=== PATIENT | male | born 1990 | race African-American/Black ===

== ENCOUNTER 2018-12-27 10:37 | Inpatient (IN) | payer SELFPAY ==
[2018-12-27] MEDS ORDERED: Oxymetazoline HCl 0.05% (30 ML BOT) ONE (15:02)
[2018-12-27 15:24] LABS: Hemoglobin 15.2 g/dL (14.0-18.0); Mean Corpuscular HGB CONC 32.9 g/dL (32.0-36.0); Mean Corpuscular Hemoglobin 30.4 pg (27.0-31.0); Mean Corpuscular Volume 92.6 fL (78.0-98.0); Mean Platelet Volume 8.1 fL (7.4-10.4); Platelet Count 219 thou/uL (130-400); RBC Distribution Width 11.2 % (11.5-14.5); Red Blood Cell (RBC) Count 4.98 mill/uL (4.70-6.10); White Blood Cell (WBC) Count 11.7 thou/uL (4.8-10.8)
[2018-12-27 15:46] LABS: Anion Gap 13 mmol/L (10-20); BUN (Urea Nitrogen) 7 mg/dL (8.9-20.6); Calc. Creatinine Clearance 0 mL/min (70-130); Calcium 9.2 mg/dL (7.8-10.44); Carbon Dioxide 25 mmol/L (22-29); Chloride 108 mmol/L (98-107); Estimated GFR-MDRD Greater than 90; Glucose 77 mg/dL (70-105); Sodium 142 mmol/L (136-145)
[2018-12-27] MEDS ORDERED: Morphine 4 MG/ML VIAL ONE (20:05)
[2018-12-27 21:27] VITALS: BMI 22.7
[2018-12-27] MEDS ORDERED: Morphine 4 MG/ML VIAL SLOW IVP PRN (21:30)
[2018-12-27] MEDS ORDERED: Lactated Ringer's 1,000 ML IV SCH (21:30)
[2018-12-27] MEDS ORDERED: Chlorhexidine Gluconate 15 ML UDCUP SSP SCH (21:30)
[2018-12-27] MEDS: HYDROcodone/Acetaminophen 5/325 mg Tablet PO PRN (21:41)
[2018-12-27] MEDS: Ibuprofen 800 MG TAB PO SCH (22:57)
[2018-12-27] MEDS: Clindamycin/D5W 600 MG in Premix Bag 1 BAG IVPB SCH (22:58)
[2018-12-28] MEDS: Clindamycin/D5W 600 MG in Premix Bag 1 BAG IVPB SCH ×3 (05:06→18:13)
[2018-12-28] MEDS: Ibuprofen 800 MG TAB PO SCH ×3 (05:09→18:13)
[2018-12-28] MEDS: HYDROcodone/Acetaminophen 5/325 mg Tablet PO PRN ×2 (06:07→16:36)
[2018-12-28] MEDS: Chlorhexidine Gluconate 15 ML UDCUP SSP SCH ×2 (08:43→20:02)
[2018-12-29] MEDS: D5 1/2 NS w/20 mEq KCL 1,000 ML IV SCH ×2 (00:04→10:51)
[2018-12-29] MEDS: Clindamycin/D5W 600 MG in Premix Bag 1 BAG IVPB SCH ×3 (00:04→11:37)
[2018-12-29] MEDS: Ibuprofen 800 MG TAB PO SCH ×3 (00:05→11:20)
[2018-12-29] MEDS ORDERED: Fentanyl 250 MCG/5 ML VIAL ONE (06:34)
[2018-12-29] MEDS ORDERED: Midazolam HCl 2 mg/2 ml Vial ONE (06:54)
[2018-12-29] MEDS ORDERED: Famotidine/PF 20 mg/2ml Vial ONE (06:54)
[2018-12-29] MEDS ORDERED: HYDROmorphone 2 MG/ML VIAL ONE (07:13)
[2018-12-29] MEDS ORDERED: Hydrocortisone 1% Cream 30 GM TUBE ONE (07:21)
[2018-12-29] MEDS ORDERED: Bupivacaine/Epinephrine 0.25% 30 ML VIAL ONE (07:21)
[2018-12-29] MEDS ORDERED: Chlorhexidine Gluconate 15 ML UDCUP SSP ONE (07:21)
[2018-12-29] MEDS ORDERED: Lidocaine 1% w/Epinephrine 1:100K 20 ML VIAL ONE (07:21)
[2018-12-29] MEDS ORDERED: Lidocaine 2% Jelly 5 ML TUBE ONE (07:43)
[2018-12-29] MEDS ORDERED: Oxymetazoline HCl 0.05% ( 15 ML ) ONE (07:49)
[2018-12-29] MEDS ORDERED: SUGAMMADEX SODIUM 500 MG/5 ML VIAL ONE (09:56)
[2018-12-29] MEDS ORDERED: HYDROmorphone 2 MG/ML VIAL SLOW IVP PRN (10:27)
[2018-12-29] MEDS ORDERED: Promethazine HCl 25 MG/ML VIAL SLOW IVP PRN (10:27)
[2018-12-29] MEDS ORDERED: Promethazine HCl 25 MG/ML VIAL IM PRN (10:27)
[2018-12-29] MEDS ORDERED: Meperidine HCl/PF 25 MG/ML VIAL SLOW IVP PRN (10:27)
[2018-12-29] MEDS: Chlorhexidine Gluconate 15 ML UDCUP SSP SCH (10:51)
--- NOTE | 2018-12-29 13:22 | HP ---
HISTORY OF PRESENT ILLNESS: This is a 28-year-old male, who was transferred from [facility] to [facility] in [place] for a higher level of care. The patient reports falling at home, but will not provide details of the events surrounding fall. Negative loss of consciousness. The patient presented to the outside hospital and was found to have bilateral mandible fractures and was ultimately transferred for our evaluation and care. PAST MEDICAL HISTORY: None. HOME MEDICATIONS: None. PAST SURGICAL HISTORY: None. ALLERGIES: NO KNOWN DRUG ALLERGIES. SOCIAL HISTORY: The patient denies smoking, alcohol, or drugs. FAMILY HISTORY: Negative. REVIEW OF SYSTEMS: The patient reports pain in the right anterior mandible, difficulty closing his teeth together and difficulty opening his mouth wide. Otherwise review of systems is negative. PHYSICAL EXAMINATION: VITAL SIGNS: Blood pressure 132/85, heart rate of 75, temperature 98.3, respirations are 18 per minute with oxygen saturation of 97% on room air. GENERAL: Alert and oriented x3, in no apparent distress. HEAD AND NECK: The patient has moderate edema over the left posterior cheek in the masseter region in the area of the left mandibular ramus. Eye and ear exam within normal limits. Nasal exam is without external findings of trauma. Nasal dorsum is midline and the nasal septum is midline without signs of trauma. No noted soft tissue wounds or signs of trauma involving the head or scalp. Intraorally, the patient has an open fracture involving the right parasymphysis region with the fracture coursing between teeth 25 and 26. There is a minor step in the occlusion between teeth 25 and 26 and the patient is unable to bring his teeth into full occlusion. Otherwise intraorally, there are no other signs of trauma with no other soft tissue wounds. No other signs of steps in the occlusion. Floor of mouth is soft. Oropharynx is within normal limits. LUNGS: Clear to auscultation bilaterally. CARDIOVASCULAR: Regular rate and rhythm. No murmurs, gallops, or rubs. ABDOMEN: Soft and nontender. LABORATORY DATA: CBC shows white count of 11.7, hemoglobin 15.2, and platelets are 219. Chemistry shows chloride high at 108 and BUN low at 7. Otherwise, chemistries are within normal limits. CT scan of the face from the outside hospital shows a mildly displaced right mandibular parasymphysis fracture and a mildly displaced left mandibular subcondylar fracture. No other facial fractures noted. ASSESSMENT: 1. Right mandibular parasymphysis fracture. 2. Left mandibular subcondylar fracture. PLAN: 1. The patient will be admitted for observation, pain control, and to be taken to the operating room for repair of the fractures. 2. The patient will need open reduction and internal fixation of the right parasymphysis fracture and closed reduction, closed treatment of the left mandibular subcondylar fracture. 3. Pain control, ambulation as tolerated, strict oral hygiene. 4. The patient will be placed on prophylactic antibiotics with clindamycin 600 mg q.6 IV and will also be placed on Peridex oral rinses b.i.d. 5. The patient was consented for the upcoming procedure. Job ID: [id number] [facility]
[2018-12-29 14:45] VITALS: BP 131/77; TEMP 98.4
--- NOTE | 2018-12-29 15:04 | CT ---
EXAM: CT Facial Bones WO Con PROVIDED CLINICAL HISTORY: Postsurgical repair of a mandibular fracture. COMPARISON: None available FINDINGS: There is an anterior plate and screws transfixing a fracture involving the anterior aspect of the man dible. Metallic wires are seen anterior to the mandible and maxilla. Minimal separation of fracture fragments of the anterior mandibular fracture is present. There is an additional fracture involving t he left mandibular ramus which is predominantly obliquely and vertically oriented with the fracture extending into the mandibular notch with mild separation and slight displacement of fracture fragment s. Mandibular condyles are normally located without dislocation involving the temporomandibular joints. No additional fracture is seen. Minimal mucosal thickening is seen in the ethmoidal air cells bilaterally as well as in each maxillar y antrum. The sphenoid sinus and frontal sinuses are clear. The orbits are normal and symmetric in appearance bilaterally. There is subcutaneous soft tissue swelling as well as subcutaneous emphysema anterior to the mandible with subcutaneous soft tissue swelling anterior to the maxilla. Findings are likely related to the mandibular fracture and recent postsurgical changes. Multiple prominent but nonspecific submental lym ph nodes are present. IMPRESSION: 1. Mildly and displaced fracture involving the left mandibular ramus with the fracture exte nding into the mandibular notch. 2. Internal fixation of fracture involving the anterior mandible. 3. Subcutaneous soft tissue swelling and emphysema anterior to the mandible and maxilla related to re cent postsurgical changes as well as the mandibular fracture. 4. Nonspecific mildly prominent submental lymph nodes.
[2018-12-29] MEDS ORDERED: Hydrocodone-Acetamin 15 ML UDCUP PO PRN (15:07)
[2018-12-29] MEDS ORDERED: PROPOFOL 200 MG/20 ML VIAL ONE (16:19)
[2018-12-29] MEDS ORDERED: Rocuronium Bromide 10 MG/ML (10ML VIAL) ONE (16:19)
[2018-12-29] MEDS ORDERED: PHENYLEPHRINE-NS 100 MCG/ML 10 ML SYRINGE ONE (16:19)
[2018-12-29] MEDS ORDERED: Lidocaine 1% PF 5 ML VIAL ONE (16:19)
[2018-12-29] MEDS ORDERED: Ketorolac Tromethamine 30 MG/ML VIAL ONE (16:19)
[2018-12-29] MEDS ORDERED: Ondansetron PF 4 MG/2 ML Vial ONE (16:19)
[2018-12-29] MEDS ORDERED: Dexamethasone 20 MG/5 ML VIAL ONE (16:19)
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
== END 2018-12-29 17:20 | disposition home or self-care (01) | DRG 132 ==
LOC: ERS 10:37 → SURG B 14:00 → SDC 14:25 → SURG B 19:26
PROVIDERS: ADMIT Dentist Oral and Maxillofacial Surgery; ATTEND Dentist Oral and Maxillofacial Surgery
PROC: 0NST04Z Reposition Right Mandible with Internal Fixation Device, Open Approach (ICD-10-PCS; principal; 2018-12-29)
PROC: 0NSV35Z Reposition Left Mandible with External Fixation Device, Percutaneous Approach (ICD-10-PCS; 2018-12-29)
DX: S02.66XB Fracture of symphysis of mandible, initial encounter for open fracture (principal); S02.622A Fracture of subcondylar process of left mandible, initial encounter for closed fracture; W17.89XA Other fall from one level to another, initial encounter; Y92.008 Other place in unspecified non-institutional (private) residence as the place of occurrence of the external cause; M26.4 Malocclusion, unspecified
CPT/HCPCS: 36415; 70486; 80048; 85027; 96360; C1713; J0131; J1100; J1170; J1885; J2001; J2250; J2270; J2405; J2704; J3010; J3490; S0028

== ENCOUNTER 2022-05-25 17:20 | Emergency (ER) | payer SELFPAY ==
[2022-05-25 17:54] LABS: #Eosinphils 0.4 thou/uL (0.0-0.7); #Lymphocytes 2.5 thou/uL (1.20-3.40); #Monocytes 0.8 thou/uL (0.11-0.59); %Basophils 0.4 % (0.0-1.0); %Eosinophils 3.4 % (0.0-10.0); %Lymphocytes 23.3 % (21.0-51.0); %Monocytes 7.4 % (0.0-10.0); %Neutrophils 65.5 % (42.0-75.0); Hemoglobin 16.5 g/dL (14.0-18.0); Mean Corpuscular HGB CONC 35.2 g/dL (32.0-36.0); Mean Corpuscular Volume 93.8 fL (78.0-98.0); Mean Platelet Volume 7.7 fL (7.4-10.4); Platelet Count 284 thou/uL (130-400); RBC Distribution Width 11.7 % (11.5-14.5); White Blood Cell (WBC) Count 10.6 thou/uL (4.8-10.8)
[2022-05-25] MEDS ORDERED: Ondansetron PF 4 MG/2 ML Vial ONE (18:04)
[2022-05-25 18:15] LABS: ALT (SGPT) 15 U/L (8-55); AST (SGOT) 16 U/L (5-34); Albumin 3.7 g/dL (3.5-5.0); Alkaline Phosphatase 48 U/L (40-110); Anion Gap 13 mmol/L (10-20); BUN (Urea Nitrogen) 13 mg/dL (8.9-20.6); Bilirubin, Total 0.8 mg/dL (0.2-1.2); Calc. Creatinine Clearance 0 mL/min (70-130); Calcium 9.2 mg/dL (7.8-10.44); Carbon Dioxide 25 mmol/L (22-29); Chloride 106 mmol/L (98-107); Estimated GFR 69; Globulin 2.8 g/dL (2.4-3.5); Glucose 95 mg/dL (70-105); Potassium 3.9 mmol/L (3.5-5.1); Protein, Total 6.5 g/dL (6.0-8.3); Sodium 140 mmol/L (136-145)
== END 2022-05-25 18:55 | disposition home or self-care (01) ==
LOC: ERS 17:20
DX: I31.9 Disease of pericardium, unspecified (principal)
CPT/HCPCS: 71045; 80053; 84484; 85025; 93005; 94760; 96361; 96374; J2405

== ENCOUNTER 2022-05-26 13:02 | Emergency (ER) | payer SELFPAY ==
[2022-05-26 13:55] LABS: #Basophils 0.1 thou/uL (0.0-0.2); #Eosinphils 0.4 thou/uL (0.0-0.7); #Lymphocytes 2.4 thou/uL (1.20-3.40); #Monocytes 0.7 thou/uL (0.11-0.59); #Neutrophils 6.3 thou/uL (1.40-6.50); %Basophils 0.7 % (0.0-1.0); %Eosinophils 4.1 % (0.0-10.0); %Lymphocytes 24.2 % (21.0-51.0); %Monocytes 7.2 % (0.0-10.0); %Neutrophils 63.9 % (42.0-75.0); Hemoglobin 15.1 g/dL (14.0-18.0); Mean Corpuscular Hemoglobin 31.6 pg (27.0-31.0); Mean Corpuscular Volume 93.1 fL (78.0-98.0); Mean Platelet Volume 7.9 fL (7.4-10.4); Platelet Count 253 thou/uL (130-400); RBC Distribution Width 11.7 % (11.5-14.5); Red Blood Cell (RBC) Count 4.78 mill/uL (4.70-6.10); White Blood Cell (WBC) Count 9.9 thou/uL (4.8-10.8)
[2022-05-26 14:15] LABS: ALT (SGPT) 13 U/L (8-55); AST (SGOT) 17 U/L (5-34); Albumin 3.7 g/dL (3.5-5.0); Alkaline Phosphatase 48 U/L (40-110); Anion Gap 12 mmol/L (10-20); BUN (Urea Nitrogen) 9 mg/dL (8.9-20.6); Bilirubin, Total 0.6 mg/dL (0.2-1.2); Calc. Creatinine Clearance 0 mL/min (70-130); Calcium 9.2 mg/dL (7.8-10.44); Carbon Dioxide 24 mmol/L (22-29); Chloride 106 mmol/L (98-107); Estimated GFR 113; Globulin 2.8 g/dL (2.4-3.5); Glucose 93 mg/dL (70-105); Protein, Total 6.5 g/dL (6.0-8.3); Sodium 138 mmol/L (136-145)
[2022-05-26] MEDS ORDERED: Ketorolac Tromethamine 30 MG/ML VIAL ONE (16:03)
== END 2022-05-26 17:02 | disposition home or self-care (01) ==
LOC: ERS 13:02
DX: I30.9 Acute pericarditis, unspecified (principal)
CPT/HCPCS: 36415; 71045; 80053; 83880; 84484; 85025; 93005; 94760; 96372; J1885

== ENCOUNTER 2022-07-28 10:30 | Emergency (ER) | payer SELFPAY ==
[2022-07-28] MEDS ORDERED: Ibuprofen 800 MG TAB ONE (11:33)
[2022-07-28] MEDS ORDERED: Dexameth. Sod Phosp. 10 MG/ML (CHEMO USE ONLY) ONE (11:33)
[2022-07-28] MEDS ORDERED: Ondansetron ODT 4 MG TAB ONE (11:33)
== END 2022-07-28 12:14 | disposition home or self-care (01) ==
LOC: ERS 10:30
DX: J11.1 Influenza due to unidentified influenza virus with other respiratory manifestations (principal)
CPT/HCPCS: 99283; J1100; Q0162

== ENCOUNTER 2022-08-14 12:49 | Emergency (ER) | payer SELFPAY ==
[2022-08-14 14:05] LABS: SARS-CoV-2 NAA Rapid Test Not Detected (NotDetected)
== END 2022-08-14 14:22 | disposition home or self-care (01) ==
LOC: ERS 12:49
DX: B34.9 Viral infection, unspecified (principal); Z20.822 Contact with and (suspected) exposure to COVID-19
CPT/HCPCS: 87804; 99283; U0002

== ENCOUNTER 2022-08-30 17:09 | Emergency (ER) | payer SELFPAY ==
[2022-08-30] MEDS ORDERED: Ibuprofen 800 MG TAB ONE (18:33)
[2022-08-30] MEDS ORDERED: Acetaminophen 500 MG TAB ONE (18:33)
== END 2022-08-30 18:43 | disposition home or self-care (01) ==
LOC: ERS 17:09
DX: J06.9 Acute upper respiratory infection, unspecified (principal)
CPT/HCPCS: 71045

== ENCOUNTER 2022-08-30 19:20 | Emergency (ER) | payer SELFPAY ==
[2022-08-30 20:12] LABS: #Eosinphils 0.4 thou/uL (0.0-0.7); #Lymphocytes 1.9 thou/uL (1.20-3.40); #Monocytes 0.8 thou/uL (0.11-0.59); #Neutrophils 4.6 thou/uL (1.40-6.50); %Basophils 0.6 % (0.0-1.0); %Eosinophils 4.6 % (0.0-10.0); %Lymphocytes 24.5 % (21.0-51.0); %Monocytes 9.9 % (0.0-10.0); %Neutrophils 60.4 % (42.0-75.0); Hemoglobin 13.8 g/dL (14.0-18.0); Mean Corpuscular Hemoglobin 32.1 pg (27.0-31.0); Mean Corpuscular Volume 94.5 fl (78.0-98.0); Mean Platelet Volume 8.3 fL (7.4-10.4); Platelet Count 207 10x3/uL (130-400); RBC Distribution Width 11.6 % (11.5-14.5); White Blood Cell (WBC) Count 7.6 10x3/uL (4.8-10.8)
[2022-08-30 20:35] LABS: ALT (SGPT) 13 U/L (8-55); AST (SGOT) 19 U/L (5-34); Albumin 3.9 g/dL (3.5-5.0); Alkaline Phosphatase 44 U/L (40-110); Anion Gap 9 mmol/L (10-20); BUN (Urea Nitrogen) 10 mg/dL (8.9-20.6); Bilirubin, Total 0.6 mg/dL (0.2-1.2); Calc. Creatinine Clearance 0 mL/min (70-130); Calcium 9.3 mg/dL (7.8-10.44); Carbon Dioxide 29 mmol/L (22-29); Chloride 106 mmol/L (98-107); Estimated GFR 110; Glucose 86 mg/dL (70-105); Lipase 25 U/L (8-78); Potassium 4.4 mmol/L (3.5-5.1); Protein, Total 6.9 g/dL (6.0-8.3); Sodium 140 mmol/L (136-145)
[2022-08-30 21:12] LABS: Bilirubin Negative (Negative); Blood, Urine Negative (Negative); Clarity Clear (Clear); Glucose, Urine (Dipstick) Normal (Negative); Ketone, Urine Negative (Negative); Leukocyte Negative Leu/uL (Negative); Nitrite Negative (Negative); Protein, Urine (Dipstick) Negative (Neg-Trace); Specific Gravity, Urine 1.018 (1.002-1.036); Urobilinogen Normal mg/dL (Less than 2)
== END 2022-08-30 21:30 | disposition home or self-care (01) ==
LOC: ERS 19:20
DX: B34.9 Viral infection, unspecified (principal)
CPT/HCPCS: 36415; 80053; 81003; 83690; 85025; 99283

== ENCOUNTER 2022-10-01 20:24 | Emergency (ER) | payer SELFPAY ==
[2022-10-01 21:22] LABS: #Eosinphils 0.4 thou/uL (0.0-0.7); #Monocytes 0.6 thou/uL (0.11-0.59); %Basophils 0.3 % (0.0-1.0); %Eosinophils 4.2 % (0.0-10.0); %Lymphocytes 22.1 % (21.0-51.0); %Monocytes 6.5 % (0.0-10.0); %Neutrophils 66.9 % (42.0-75.0); Hemoglobin 14.5 g/dL (14.0-18.0); Mean Corpuscular HGB CONC 34.1 g/dL (32.0-36.0); Mean Corpuscular Hemoglobin 31.9 pg (27.0-31.0); Mean Corpuscular Volume 93.5 fl (78.0-98.0); Mean Platelet Volume 8.3 fL (7.4-10.4); Platelet Count 211 10x3/uL (130-400); RBC Distribution Width 11.9 % (11.5-14.5); Red Blood Cell (RBC) Count 4.53 mill/uL (4.70-6.10)
[2022-10-01 21:42] LABS: Anion Gap 13 mmol/L (10-20); BUN (Urea Nitrogen) 10 mg/dL (8.9-20.6); Carbon Dioxide 25 mmol/L (22-29); Chloride 107 mmol/L (98-107); Potassium 3.8 mmol/L (3.5-5.1); Sodium 141 mmol/L (136-145)
[2022-10-01 21:43] LABS: ALT (SGPT) Less than 7 U/L (8-55); AST (SGOT) 11 U/L (5-34); Alkaline Phosphatase 44 U/L (40-110); Bilirubin, Total 0.5 mg/dL (0.2-1.2); Calc. Creatinine Clearance 0 mL/min (70-130); Calcium 9.2 mg/dL (7.8-10.44); Estimated GFR 118; Globulin 2.9 g/dL (2.4-3.5); Glucose 87 mg/dL (70-105); Protein, Total 6.9 g/dL (6.0-8.3)
[2022-10-01 22:56] LABS: Bilirubin Negative (Negative); Blood, Urine Negative (Negative); Clarity Clear (Clear); Glucose, Urine (Dipstick) Normal (Negative); Ketone, Urine Negative (Negative); Leukocyte Negative Leu/uL (Negative); Nitrite Negative (Negative); Protein, Urine (Dipstick) Negative (Neg-Trace); Specific Gravity, Urine 1.014 (1.002-1.036); Urobilinogen Normal mg/dL (Less than 2)
== END 2022-10-02 | disposition home or self-care (01) ==
LOC: ERS 20:24
DX: R11.0 Nausea (principal); R53.1 Weakness
CPT/HCPCS: 36415; 36416; 71045; 80053; 81003; 84484; 85025; 93005